=== PATIENT | female | born 1995 | race Caucasian/White ===

== ENCOUNTER 2017-09-26 21:55 | Emergency (ER) | payer OTHER ==
[~2017-09-26] VITALS: Ht 167.6 cm; Wt 77.1 kg
[~2017-09-26 21:55] MED LIST: ALBU2.5V5 NEB; ALBU90OI61 INH; AMOX500 PO; Antivert25 MG PO; BCP'S PO; IBUP400 PO; IBUP800 PO; MEDR10 PO; NORPLANT; ONDA4 PO; Percocet 5-3251 EACH PO; Zofran8 MG PO
== END 2017-09-27 01:24 | disposition home or self-care (01) ==
LOC: ER 21:55
DX: J02.9 Acute pharyngitis, unspecified (principal); J03.90 Acute tonsillitis, unspecified; F17.210 Nicotine dependence, cigarettes, uncomplicated
CPT/HCPCS: 86308; 87081; 87430; J1100

== ENCOUNTER → 2018-11-14 | Outpatient (CLI) | payer OTHER ==
[~2018-11-14] MED LIST changes: +PENVK500 PO
== END | disposition home or self-care (01) ==
LOC: LAB 19:00 → LAB SHORT 19:00
DX: H60.502 Unspecified acute noninfective otitis externa, left ear (principal); J02.9 Acute pharyngitis, unspecified
CPT/HCPCS: 87081

== ENCOUNTER → 2019-08-01 | Outpatient (CLI) | payer OTHER | END | disposition home or self-care (01) | LOC: LAB SHORT 15:24 → LAB 15:24 | DX: R10.9 Unspecified abdominal pain (principal) | CPT/HCPCS: 87081; 87086; 87147 ==

== ENCOUNTER 2019-08-19 21:38 | Emergency (ER) | payer OTHER ==
[~2019-08-19] VITALS: Ht 167.6 cm; Wt 81.7 kg
[~2019-08-19 21:38] MED LIST changes: +Zithromax250 MG PO
== END 2019-08-19 23:27 | disposition left against medical advice (07) ==
LOC: ER 21:38
DX: Z53.21 Procedure and treatment not carried out due to patient leaving prior to being seen by health care provider (principal)
CPT/HCPCS: 99281; 99282

== ENCOUNTER 2019-09-26 09:16 | Emergency (ER) | payer OTHER ==
[~2019-09-26] VITALS: Ht 165.1 cm; Wt 83.9 kg
[2019-09-26] MEDS ORDERED: Norco 5-325 Ta1 EACH PO (10:10)
== END 2019-09-26 10:41 | disposition home or self-care (01) ==
LOC: ER 09:16
DX: K04.7 Periapical abscess without sinus (principal); F17.210 Nicotine dependence, cigarettes, uncomplicated; Z88.8 Allergy status to other drugs, medicaments and biological substances; Z88.5 Allergy status to narcotic agent
CPT/HCPCS: 96372; 99282-25; A9270-GY; J0561

== ENCOUNTER 2019-11-16 19:12 | Emergency (ER) | payer OTHER ==
[~2019-11-16 19:12] MED LIST changes: +Norco 5-325 Ta1 EACH PO
== END 2019-11-16 20:11 | disposition left against medical advice (07) ==
LOC: ER 19:12
DX: Z53.21 Procedure and treatment not carried out due to patient leaving prior to being seen by health care provider (principal)

== ENCOUNTER 2020-06-04 12:38 | Emergency (ER) | payer OTHER | END 2020-06-04 14:08 | disposition left against medical advice (07) | LOC: ER 12:38 | DX: Z53.21 Procedure and treatment not carried out due to patient leaving prior to being seen by health care provider (principal) ==

== ENCOUNTER → 2021-05-15 | Outpatient (CLI) | payer OTHER ==
[2021-05-17 20:06] LABS: CORONAVIRUS (COVID19) CSH-NRL Positive (Negative)
== END | disposition home or self-care (01) ==
LOC: LAB SHORT 14:59
PROVIDERS: Physician Assistant Medical
DX: Z20.822 Contact with and (suspected) exposure to COVID-19 (principal)
CPT/HCPCS: U0003

== ENCOUNTER → 2021-11-12 | Outpatient (CLI) | payer OTHER ==
[2021-11-13 12:09] LABS: Candida species (DNA Probe) Negative (NEGATIVE); G. vaginalis (DNA Probe) Negative (NEGATIVE); T. vaginalis (DNA Probe) Negative (NEGATIVE)
[2021-11-15 01:07] LABS: CHLAMYDIA TRACHOMATIS, NAA Negative (Negative)
== END ==
LOC: LAB SHORT 13:47 → LAB 13:47
PROVIDERS: Family Medicine
DX: Z71.1 Person with feared health complaint in whom no diagnosis is made (principal)
CPT/HCPCS: 87480; 87510; 87660

== ENCOUNTER → 2022-05-03 | Outpatient (CLI) | payer OTHER ==
[2022-05-03 14:00] LABS: Percent Saturation 14.7 % (15.0-50.0)
== END | disposition home or self-care (01) ==
LOC: LAB SHORT 10:20
PROVIDERS: Registered Nurse Community Health
DX: N92.1 Excessive and frequent menstruation with irregular cycle (principal)
CPT/HCPCS: 82728; 83540; 83550

== ENCOUNTER → 2022-05-16 | Outpatient (CLI) | payer OTHER ==
[2022-05-17 15:11] LABS: HPV 16 Negative (Negative); HPV 18 Negative (Negative); HPV OTHER HR TYPES Positive (Negative)
== END | disposition home or self-care (01) ==
LOC: LAB 13:36 → LAB SHORT 13:36
PROVIDERS: Registered Nurse Community Health
DX: Z12.4 Encounter for screening for malignant neoplasm of cervix (principal)
CPT/HCPCS: 87624; 87625; G0145

== ENCOUNTER 2022-09-14 10:54 | Day surgery (SDC) | payer OTHER ==
[2022-09-12 13:12] LABS: BASOPHILS ABSOLUTE AUTO 0.04 K/mm3 (0.00-0.23); BASOPHILS PERCENT AUTO 1 % (0-2); EOSINOPHILS ABSOLUTE AUTO 0.11 K/mm3 (0.00-0.68); EOSINOPHILS PERCENT AUTO 2 % (0-6); Hemoglobin 11.5 g/dL (11.5-16.0); IMMATURE GRAN ABSOLUTE AUTO 0.01 K/mm3 (0.00-0.10); IMMATURE GRAN PERCENT AUTO 0 % (0-1); LYMPHOCYTES ABSOLUTE AUTO 1.95 K/mm3 (0.84-5.20); LYMPHOCYTES PERCENT AUTO 40 % (21-46); MONOCYTES ABSOLUTE AUTO 0.42 K/mm3 (0.16-1.47); MONOCYTES PERCENT AUTO 9 % (4-13); Mean Corpuscular HGB 29.9 pg (26.0-34.0); Mean Corpuscular HGB Conc 31.9 g/dL (31.5-36.5); Mean Corpuscular Volume 94 fL (80-100); Mean Platelet Volume 10.6 fL (9.1-12.4); NEUTROPHILS ABSOLUTE AUTO 2.37 K/mm3 (1.96-9.15); NEUTROPHILS PERCENT AUTO 48 % (41-73); Platelet Count 231 K/mm3 (150-400); RDW Coefficient Variation 12.7 % (11.7-14.2); RDW Standard Deviation 43.9 fL (35.1-46.3); Red Blood Cell Count 3.84 M/mm3 (3.80-5.20)
[2022-09-14] VITALS (16 sets, daily range): BP systolic 99–129; BP diastolic 61–100
[~2022-09-14] VITALS: Ht 165.1 cm; Wt 64.5 kg
--- NOTE | 2022-09-14 18:17 | NUR ---
DR ECHEVARRIA IN TO SEE PATIENT AND DISCUSSED DISCHARGE PLAN WITH PATIENT. PATIENT IS AWARE DISCHARGE WILL BE SOMETIME AFTER 0 AND IF PAIN CONTROLLED, SANDRA PO, VOIDING AND AMBULATING. PT REPORTS CURRENT ABD PAIN IS 7-[address] ECHEVARRIA HAD LOOSENED ABD BINDER WHICH CAUSED INCREASE IN PAIN. ABD LAP SITES WITHOUT DRAINAGE, ABSD BINDER IN PLACE, PT USING IS EACH HOUR
[2022-09-14] MEDS ORDERED: IBUP200 PO (18:26)
[2022-09-14] MEDS ORDERED: Percocet 5-3251 EACH PO (18:27)
[2022-09-14] MEDS ORDERED: PROM25 PO (18:28)
[2022-09-14] MEDS ORDERED: SIME80CH PO (18:29)
--- NOTE | 2022-09-14 23:07 | NUR ---
DISCHARGE NOTE: PT VITALS STABLE, X4 LAP SITES REMAIN CLOSED WITH SKIN GLUE. PT CONTINUES TO REPORTS VERY LIGHT VAGINAL BLEEDING/SPOTTING. PAIN WELL MANAGED WITH PO MEDICATION. AMBULATING TO BR WITH MINIMAL PAIN. VERIFIED WITH PT THAT SCRIPTS FROM PROVIDER HAVE BEEN FILLED. DISCHARGE EDUCATION GIVEN TO PATIENT AND DISCHARGE PACKET IN PT POSSESSION, VERIFIED WITH PT HER UNDERSTANDING. PT TAKEN TO PRIVATE VEHICLE PER WHEELCHAIR BY JOSE.
== END 2022-09-14 23:35 | disposition home or self-care (01) ==
LOC: ORSCMMR 10:54 → ORD 12:45 → ORSCMMR 12:45 → SURS 16:22 → ORSCMMR 23:35
PROVIDERS: Obstetrics & Gynecology
PROC: 0U5F4ZZ Destruction of Cul-de-sac, Percutaneous Endoscopic Approach (ICD-10-PCS; principal; 2022-09-14 12:45)
PROC: 0UT9FZZ Resection of Uterus, Via Natural or Artificial Opening With Percutaneous Endoscopic Assistance (ICD-10-PCS; principal; 2022-09-14 12:45)
DX: N92.1 Excessive and frequent menstruation with irregular cycle (principal); N80.30 Endometriosis of pelvic peritoneum, unspecified; D50.0 Iron deficiency anemia secondary to blood loss (chronic); N94.6 Dysmenorrhea, unspecified; R10.2 Pelvic and perineal pain; K66.0 Peritoneal adhesions (postprocedural) (postinfection)
CPT/HCPCS: 58570; 58662; S2900; 36415; 85025; 86850; 86900; 86901; 88305; 88307; 94760; A9270; J0690; J1100; J1170; J1885; J2405; J2704; J2710; J3010; J7120

== ENCOUNTER → 2023-01-08 | Outpatient (CLI) | payer OTHER ==
[~2023-01-08] MED LIST changes: +IBUP200 PO; +PROM25 PO; +SIME80CH PO
[2023-01-08 18:02] LABS: BASOPHILS ABSOLUTE AUTO 0.02 K/mm3 (0.00-0.23); BASOPHILS PERCENT AUTO 0 % (0-2); EOSINOPHILS ABSOLUTE AUTO 0.13 K/mm3 (0.00-0.68); EOSINOPHILS PERCENT AUTO 2 % (0-6); Hematocrit 38.1 % (33.0-51.0); Hemoglobin 12.3 g/dL (11.5-16.0); IMMATURE GRAN ABSOLUTE AUTO 0.01 K/mm3 (0.00-0.10); IMMATURE GRAN PERCENT AUTO 0 % (0-1); LYMPHOCYTES ABSOLUTE AUTO 1.96 K/mm3 (0.84-5.20); LYMPHOCYTES PERCENT AUTO 33 % (21-46); MONOCYTES ABSOLUTE AUTO 0.43 K/mm3 (0.16-1.47); MONOCYTES PERCENT AUTO 7 % (4-13); Mean Corpuscular HGB 29.2 pg (26.0-34.0); Mean Corpuscular HGB Conc 32.3 g/dL (31.5-36.5); Mean Corpuscular Volume 91 fL (80-100); Mean Platelet Volume 11.3 fL (9.1-12.4); NEUTROPHILS ABSOLUTE AUTO 3.34 K/mm3 (1.96-9.15); NEUTROPHILS PERCENT AUTO 57 % (41-73); Platelet Count 236 K/mm3 (150-400); RDW Coefficient Variation 12.8 % (11.7-14.2); RDW Standard Deviation 42.8 fL (35.1-46.3); Red Blood Cell Count 4.21 M/mm3 (3.80-5.20); White Blood Cell Count 5.89 K/mm3 (4.00-11.30)
[2023-01-08 19:33] LABS: Ferritin, Serum 5 ng/mL (8-252); Iron Serum 28 ug/dL (50-170); LDL/HDL RATIO 1.6; Percent Saturation 6.6 % (15.0-50.0); Total Iron Binding Capacity 422 ug/dL (250-450); Very Low Density Lipoprot Chol 11 mg/dL (6-28)
[2023-01-08 19:34] LABS: Alanine Aminotransfer (ALT/SGP 15 U/L (12-78); Albumin/Globulin Ratio 1.2 (0.8-1.8); Alk Phos 42 U/L (50-136); Anion Gap 4 mmol/L (6-16); Aspartate Aminotrans (AST/SGOT 7 U/L (12-37); Bilirubin, Total 0.2 mg/dL (0.1-1.0); Blood Urea Nitrogen 8 mg/dL (8-24); CHOL/HDL RATIO 2.8; CO2, Blood 27 mmol/L (21-32); Calcium, Blood 9.3 mg/dL (8.5-10.1); Chloride, Blood 108 mmol/L (98-108); Cholesterol 165 mg/dL (50-200); Globulin, Blood 3.4 g/dL (2.2-4.0); Glucose, Blood 98 mg/dL (70-99); HDL Cholesterol 59 mg/dL (>39); Low Density Lipoprotein Chol 95 mg/dL (0-110); Potassium, Blood 4.2 mmol/L (3.5-5.5); Sodium, Blood 139 mmol/L (136-145); Total Protein, Blood 7.4 g/dL (6.4-8.2); Triglycerides 57 mg/dL (30-140)
[2023-01-08 19:35] LABS: Bun/Creatinine Ratio 13.1 (12.0-20.0); Creatinine, Blood 0.61 mg/dL (0.40-1.00); Glomerular Filtration Rate 124 (60-); Thyroid Stimulating Hormone 0.944 uIU/mL (0.360-4.800)
== END | disposition home or self-care (01) ==
LOC: LAB SHORT 16:23 → LAB 16:23
PROVIDERS: Nurse Practitioner Family
DX: Z13.220 Encounter for screening for lipoid disorders (principal); Z13.9 Encounter for screening, unspecified; D50.9 Iron deficiency anemia, unspecified; R53.83 Other fatigue
CPT/HCPCS: 80053; 80061; 82306; 82728; 83540; 83550; 84443; 85025

== ENCOUNTER → 2023-05-08 | Outpatient (CLI) | payer OTHER | END | disposition home or self-care (01) | LOC: LAB 14:53 → LAB SHORT 14:53 | DX: J02.9 Acute pharyngitis, unspecified (principal) | CPT/HCPCS: 87081 ==

== ENCOUNTER → 2023-10-08 | Outpatient (CLI) | payer OTHER ==
[2023-10-08 17:40] LABS: BASOPHILS ABSOLUTE AUTO 0.03 K/mm3 (0.00-0.23); BASOPHILS PERCENT AUTO 0 % (0-2); EOSINOPHILS ABSOLUTE AUTO 0.05 K/mm3 (0.00-0.68); EOSINOPHILS PERCENT AUTO 1 % (0-6); Hematocrit 37.9 % (33.0-51.0); Hemoglobin 12.5 g/dL (11.5-16.0); IMMATURE GRAN ABSOLUTE AUTO 0.02 K/mm3 (0.00-0.10); IMMATURE GRAN PERCENT AUTO 0 % (0-1); LYMPHOCYTES ABSOLUTE AUTO 1.78 K/mm3 (0.84-5.20); LYMPHOCYTES PERCENT AUTO 25 % (21-46); MONOCYTES PERCENT AUTO 7 % (4-13); Mean Corpuscular HGB 31.6 pg (26.0-34.0); Mean Corpuscular Volume 96 fL (80-100); Mean Platelet Volume 10.9 fL (9.1-12.4); NEUTROPHILS PERCENT AUTO 66 % (41-73); Platelet Count 221 K/mm3 (150-400); RDW Coefficient Variation 12.5 % (11.7-14.2); RDW Standard Deviation 44.7 fL (35.1-46.3); Red Blood Cell Count 3.95 M/mm3 (3.80-5.20); White Blood Cell Count 7.08 K/mm3 (4.00-11.30)
[2023-10-08 17:58] LABS: Albumin/Globulin Ratio 1.3 (0.8-1.8); Bilirubin, Total 0.3 mg/dL (0.1-1.0); Bun/Creatinine Ratio 11.9 (12.0-20.0); Calcium, Blood 9.1 mg/dL (8.5-10.1); Creatinine, Blood 0.67 mg/dL (0.40-1.00); Follicle Stimulating Hormone 3.7 mIU/ml; Globulin, Blood 3.1 g/dL (2.2-4.0); Luteinizing Hormone 4.6 mIU/ml; Potassium, Blood 3.7 mmol/L (3.5-5.5); Total Protein, Blood 7.1 g/dL (6.4-8.2)
== END ==
LOC: LAB SHORT 16:25 → LAB 16:25
PROVIDERS: Nurse Practitioner Family
DX: Z40.02 Encounter for prophylactic removal of ovary(s) (principal); Z90.710 Acquired absence of both cervix and uterus
CPT/HCPCS: 80053; 83001; 83002; 85025

== ENCOUNTER → 2024-01-11 | Outpatient (CLI) | payer OTHER ==
[2024-01-11 17:12] LABS: BASOPHILS ABSOLUTE AUTO 0.02 K/mm3 (0.00-0.23); BASOPHILS PERCENT AUTO 0 % (0-2); EOSINOPHILS ABSOLUTE AUTO 0.15 K/mm3 (0.00-0.68); EOSINOPHILS PERCENT AUTO 3 % (0-6); Hematocrit 36.3 % (33.0-51.0); Hemoglobin 11.9 g/dL (11.5-16.0); IMMATURE GRAN ABSOLUTE AUTO 0.01 K/mm3 (0.00-0.10); IMMATURE GRAN PERCENT AUTO 0 % (0-1); LYMPHOCYTES ABSOLUTE AUTO 1.94 K/mm3 (0.84-5.20); LYMPHOCYTES PERCENT AUTO 36 % (21-46); MONOCYTES ABSOLUTE AUTO 0.41 K/mm3 (0.16-1.47); MONOCYTES PERCENT AUTO 8 % (4-13); Mean Corpuscular HGB 31.5 pg (26.0-34.0); Mean Corpuscular HGB Conc 32.8 g/dL (31.5-36.5); Mean Corpuscular Volume 96 fL (80-100); Mean Platelet Volume 10.8 fL (9.1-12.4); NEUTROPHILS ABSOLUTE AUTO 2.82 K/mm3 (1.96-9.15); NEUTROPHILS PERCENT AUTO 53 % (41-73); Platelet Count 224 K/mm3 (150-400); RDW Coefficient Variation 12.4 % (11.7-14.2); RDW Standard Deviation 43.9 fL (35.1-46.3); Red Blood Cell Count 3.78 M/mm3 (3.80-5.20); White Blood Cell Count 5.35 K/mm3 (4.00-11.30)
== END ==
LOC: LAB SHORT 15:39 → LAB 15:39
PROVIDERS: Internal Medicine Hematology & Oncology
DX: D53.8 Other specified nutritional anemias (principal)
CPT/HCPCS: 85025